=== PATIENT | male | born 1970 | race Caucasian/White ===

== ENCOUNTER → 2021-01-20 14:07 | Outpatient (BNVA) | payer MEDICAID, SELFPAY | PROVIDERS: PCP Internal Medicine; Referring Provider Emergency Medicine; Visit Provider Surgery | DX: L73.2 Hidradenitis suppurativa (principal) | CPT/HCPCS: 99202 ==

== ENCOUNTER 2021-01-28 16:40 | Emergency (ER) | payer OTHER, MEDICAID, SELFPAY ==
[2021-01-28 16:45] VITALS: BP 131/87; PULSE 97; O2SAT 97
[2021-01-28 16:46] VITALS: BP 114/69; PULSE 99; RESP 19; TEMP 36.6; O2SAT 98; BMI 51.4
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
[2021-01-28] MEDS: Acetaminophen 325 MG TABLET 975 MG PO (18:03)
[2021-01-28] MEDS: Naloxone HCl Nasal TAKE HOME 4 MG SPRAY NOSTRILALT (18:04)
[2021-01-28] MEDS: Ibuprofen 600 MG TABLET PO (18:04)
--- NOTE | 2021-01-28 18:06 | PC.NURSE ---
NARCAN FOR TAKE HOME USE NOT GIVEN.
== END 2021-01-28 18:12 | disposition home or self-care (01) ==
PROVIDERS: Emergency Provider Emergency Medicine Emergency Medical Services
DX: S09.90XA Unspecified injury of head, initial encounter (principal); S00.83XA Contusion of other part of head, initial encounter; S39.012A Strain of muscle, fascia and tendon of lower back, initial encounter; G44.309 Post-traumatic headache, unspecified, not intractable; F14.90 Cocaine use, unspecified, uncomplicated; V43.52XA Car driver injured in collision with other type car in traffic accident, initial encounter; Y93.9 Activity, unspecified; Y92.410 Unspecified street and highway as the place of occurrence of the external cause; Y99.9 Unspecified external cause status; Z79.899 Other long term (current) drug therapy; Z71.51 Drug abuse counseling and surveillance of drug abuser
CPT/HCPCS: 99283; 99284

== ENCOUNTER → 2022-01-03 11:01 | Outpatient (BNVA) | payer MEDICAID, SELFPAY | PROVIDERS: PCP Internal Medicine; Visit Provider Anesthesiology | DX: M46.1 Sacroiliitis, not elsewhere classified (principal); E66.01 Morbid (severe) obesity due to excess calories; M72.2 Plantar fascial fibromatosis; M51.36 Other intervertebral disc degeneration, lumbar region; M54.16 Radiculopathy, lumbar region; M47.816 Spondylosis without myelopathy or radiculopathy, lumbar region; G89.4 Chronic pain syndrome; Z68.41 Body mass index [BMI] 40.0-44.9, adult | CPT/HCPCS: 99202 ==

== ENCOUNTER 2022-01-11 06:08 | Outpatient (REF) | payer MEDICAID, SELFPAY ==
--- NOTE | ~2022-01-11 | FL_ITS ---
EXAMINATION: XR FLUOROSCOPY WITH IMAGES CLINICAL INFORMATION: SI joint injection. COMPARISON: None. TECHNIQUE: Fluoroscopy performed by Dr. Kem Deleon. Fluoroscopy time: 0.1 minute. Cumulative Dose: 8.66 mGy. DAP: 2.41 Gy-cm2. Images: 1. FINDINGS: There is a single image revealing a needle positioned along the right SI joint and contrast opacifying the adjacent soft tissues. FL/FL guidance in treatment room IMPRESSION: Fluoroscopy guidance was provided to referrer for SI joint injection.
== END 2022-01-11 06:09 | disposition home or self-care (01) ==
LOC: HO.RADIR 06:08
PROVIDERS: Visit Provider Anesthesiology
DX: M46.1 Sacroiliitis, not elsewhere classified (principal); M54.16 Radiculopathy, lumbar region; M51.36 Other intervertebral disc degeneration, lumbar region; M47.816 Spondylosis without myelopathy or radiculopathy, lumbar region; M72.2 Plantar fascial fibromatosis; E66.01 Morbid (severe) obesity due to excess calories; G89.4 Chronic pain syndrome
CPT/HCPCS: 27096

== ENCOUNTER 2022-02-08 06:18 | Outpatient (REF) | payer MEDICAID, SELFPAY ==
--- NOTE | ~2022-02-08 | FL_ITS ---
EXAMINATION: XR FLUOROSCOPY WITH IMAGES CLINICAL INFORMATION: Radiculopathy lumbar region. COMPARISON: None. TECHNIQUE: Fluoroscopy performed by POLLY Nguyen. Fluoroscopy time: 0.6 minutes. Cumulative Dose: 129 mGy. DAP: 30 Gy-cm2. Images: 2. FINDINGS: There are 2 digital images obtained revealing needle positioned inferior to right L4 and L5 pedicles with contrast opacifying the intra- and extraspinal epidural space. The visualized bones and the disc heights are preserved normal. FL/FL guidance in treatment room IMPRESSION: Fluoroscopy guidance provided to referrer for pain management.
== END 2022-02-08 06:19 | disposition home or self-care (01) ==
LOC: CF 06:18
PROVIDERS: Visit Provider Anesthesiology
DX: M54.16 Radiculopathy, lumbar region (principal); M46.1 Sacroiliitis, not elsewhere classified; M72.2 Plantar fascial fibromatosis; M51.36 Other intervertebral disc degeneration, lumbar region; M47.816 Spondylosis without myelopathy or radiculopathy, lumbar region; G89.4 Chronic pain syndrome
CPT/HCPCS: 64483; 64484; J3300

== ENCOUNTER → 2022-03-14 15:17 | Outpatient (BNVA) | payer MEDICAID, SELFPAY | PROVIDERS: PCP Internal Medicine; Visit Provider Anesthesiology | DX: M46.1 Sacroiliitis, not elsewhere classified (principal); E66.01 Morbid (severe) obesity due to excess calories; M72.2 Plantar fascial fibromatosis; M51.36 Other intervertebral disc degeneration, lumbar region; M54.16 Radiculopathy, lumbar region; M47.816 Spondylosis without myelopathy or radiculopathy, lumbar region; G89.4 Chronic pain syndrome | CPT/HCPCS: 99212 ==

== ENCOUNTER 2022-04-12 06:12 | Outpatient (REF) | payer MEDICAID, SELFPAY ==
--- NOTE | ~2022-04-12 | FL_ITS ---
EXAMINATION: XR FLUOROSCOPY WITH IMAGES CLINICAL INFORMATION: M47.816 - Spondylosis without myelopathy or radiculopathy, lumbar region COMPARISON: Lumbar spine radiographs 10/15/2019 TECHNIQUE: Fluoroscopy Supervised By: Dr. Kem Deleon. Fluoroscopy Time: 0.3 minutes. Cumulative Dose: 24.7 mGy. DAP: 6.75 Gycm2. Images: 3. FINDINGS: There are spinal needles overlying the outer right L3, L4, and L5 neural foramen. There is contrast seen in the respective nerve sheaths. Some early transforaminal epidural extension is suggested. No visible vascular communication. There are degenerative changes again seen with multilevel vertebral spurring. FL/FL guidance in treatment room IMPRESSION: Fluoroscopy for pain management procedures.
== END 2022-04-12 06:13 | disposition home or self-care (01) ==
LOC: CF 06:12
PROVIDERS: Visit Provider Anesthesiology
DX: Z13.89 Encounter for screening for other disorder (principal)

== ENCOUNTER 2022-05-23 12:17 | Emergency (ER) | payer MEDICAID, SELFPAY ==
[2022-05-23 12:29] VITALS: BP 117/64; PULSE 89; RESP 18; TEMP 36.4; O2SAT 95; BMI 47.5
--- NOTE | 2022-05-23 12:30 | ED_ITS ---
HPI - Extremity Injury (Lower) General Chief Complaint: General Medical <CAROLANN Gonzalez Last Filed: 05/23/22 12:34> Stated Complaint: Back pain/Knee pain <CAROLANN Gonzalez Last Filed: 05/23/22 12:34> Time Seen by Provider: 05/23/22 13:26 <CAROLANN Gonzalez Last Filed: 05/23/22 12:34> Source: patient <CAROLANN Sharpe Last Filed: 05/23/22 15:16> Mode of arrival: ambulatory <CAROLANN Sharpe Last Filed: 05/23/22 15:16> Limitations: no limitations <CAROLANN Sharpe Last Filed: 05/23/22 15:16> History of Present Illness HPI Narrative: Patient is a 51 year old assigned male at with a history of chronic back pain presenting to the emergency department today with low back pain, bilateral knee pain, and left shoulder pain. Patient states that last week he started at [facility] and he has been having this pain since starting. Patient denies any dizziness, lightheadedness, abdominal pain, nausea, vomiting, fever, chills, blurry vision, double vision, loss of vision, chest pain, difficulty breathing, shortness of breath, night sweats, pain with urination, increased urinary frequency, increased urinary urgency, blood in his urine or stool, syncope or a near syncopal episode, recent trauma or falls, bowel incontinence, bladder incontinence, bowel retention, bladder retention, or any other complaints at this time. <CAROLANN Sharpe - Last Filed: 05/23/22 15:16> Onset (ago): day(s) <CAROLANN Sharpe - Last Filed: 05/23/22 15:16> Severity: mild <CAROLANN Sharpe Last Filed: 05/23/22 15:16> Severity scale (1-10): 2 <CAROLANN Sharpe Last Filed: 05/23/22 15:16> Other symptoms: none <CAROLANN Sharpe Last Filed: 05/23/22 15:16> Related Data Home Medications: Home Medications Medication Instructions Recorded Confirmed diclofenac potassium 25 mg capsule 25 mg PO BID 01/20/21 01/20/21 Previous Rx's Medication Instructions Recorded chlorhexidine gluconate 4 % 1 appl topical .COMPLEX 2 doses 01/20/21 topical liquid (Hibiclens) #473 mL methocarbamol 500 mg tablet 1,000 mg PO Q8H PRN Back pain, 01/28/21 muscle spasm #30 tabs cyclobenzaprine 5 mg tablet 5 mg PO TID PRN muscle spasm 7 05/23/22 days #21 tabs <CAROLANN Gonzalez - Last Filed: 05/23/22 12:34> Allergies/Adverse Reactions: Allergies Allergy/AdvReac Type Severity Reaction Status Date / Time No Known Allergies Allergy Verified 04/14/22 08:24 [No Known Allergies*] <CAROLANN Gonzalez Last Filed: 05/23/22 12:34> Review of Systems Constitutional: Constitutional: Reports no additional constitutional complaints, Denies chills, Denies fever(s) and Denies night sweats <CAROLANN Sharpe Last Filed: 05/23/22 15:16> Eyes: Eyes: Reports no additional eye complaints, Denies blurry vision, Denies change in vision, Denies diplopia, Denies eye discharge, Denies loss of vision and Denies eye pain <CAROLANN Sharpe Last Filed: 05/23/22 15:16> ENT: Denies dizziness <CAROLANN Sharpe Last Filed: 05/23/22 15:16> Cardiovascular: Cardiovascular: Reports no additional cardiovascular complaints, Denies chest pain, Denies lightheadedness, Denies Loss of Consciousness and Denies dyspnea <CAROLANN Sharpe Last Filed: 05/23/22 15:16> Respiratory: Respiratory: Reports no additional respiratory complaints and Denies dyspnea <CAROLANN Sharpe Last Filed: 05/23/22 15:16> Gastrointestinal: Gastrointestinal: Reports no additional gastrointestinal complaints, Denies abdominal pain, Denies melena, Denies hematochezia, Denies change in bowel habits and Denies change in stool character <CAROLANN Sharpe Last Filed: 05/23/22 15:16> Genitourinary: Genitourinary: Reports no additional male genitourinary complaints, Denies hematuria, Denies oliguria, Denies difficulty urinating, Denies dysuria, Denies urinary frequency, Denies urinary hesitancy, Denies urinary incontinence and Denies urinary urgency <CAROLANN Sharpe - Last Filed: 05/23/22 15:16> Musculoskeletal: Musculoskeletal: Reports no additional musculoskeletal complaints, Denies numbness and Denies tingling <CAROLANN Sharpe - Last Filed: 05/23/22 15:16> Comments: back pain, bilateral knee pain, left shoulder pain <CAROLANN Sharpe - Last Filed: 05/23/22 15:16> Neurologic: Denies dizziness, Denies loss of vision, Denies numbness and Denies tingling <CAROLANN Sharpe - Last Filed: 05/23/22 15:16> Psychiatric: Psychiatric: Reports no additional psychiatric complaints <CAROLANN Sharpe - Last Filed: 05/23/22 15:16> Endocrine: Endocrine: Reports no additional endocrine complaints <CAROLANN Sharpe - Last Filed: 05/23/22 15:16> Hematologic/Lymphatic: Hematologic/Lymphatic: Reports no additional hematologic/lymphatic complaints <CAROLANN Sharpe - Last Filed: 05/23/22 15:16> Allergic/Immunologic: Allergic/Immunologic: Reports no additional allergic/immunologic complaints <CAROLANN Sharpe - Last Filed: 05/23/22 15:16> [facility] Past Medical History Attestation statement: The following information was validated with the patient. <CAROLANN Sharpe - Last Filed: 05/23/22 15:16> Source: old records reviewed and nursing notes reviewed <CAROLANN Sharpe - Last Filed: 05/23/22 15:16> Medical History: Medical History Anxiety Depression History of back pain Obesity <CAROLANN Gonzalez - Last Filed: 05/23/22 12:34> Social History Social History: Social History Advance Directives: No Advance Directives Information Provided: No <CAROLANN Gonzalez - Last Filed: 05/23/22 12:34> Physical Exam Vital Signs: Vital Signs: Last Vital Signs Temp 97.5 F 05/23/22 12:29 Pulse 89 05/23/22 12:29 Resp 18 05/23/22 12:29 BP 117/64 05/23/22 12:29 Pulse Ox 95 05/23/22 12:29 O2 Del Method 05/23/22 12:29 BMI result Body Mass Index 47.5 <Krysta Wan SD - Last Filed: 05/23/22 12:34> Vital Signs: Last Vital Signs Temp 97.5 F 05/23/22 12:29 Pulse 89 05/23/22 12:29 Resp 18 05/23/22 12:29 BP 117/64 05/23/22 12:29 Pulse Ox 95 05/23/22 12:29 O2 Del Method 05/23/22 12:29 BMI result Body Mass Index 47.5 <CAROLANN Sharpe - Last Filed: 05/23/22 15:16> Const: General: cooperative, no acute distress, alert and awake <CAROLANN Sharpe - Last Filed: 05/23/22 15:16> Nutritional Appearance: well nourished <CAROLANN Sharpe - Last Filed: 05/23/22 15:16> Orientation/consciousness: patient oriented x3 <CAROLANN Sharpe - Last Filed: 05/23/22 15:16> Limitations: no limitations <CAROLANN Sharpe - Last Filed: 05/23/22 15:16> HEENT: Head: Yes normal to inspection and Yes atraumatic <CAROLANN Sharpe - Last Filed: 05/23/22 15:16> Ears: hearing grossly normal bilaterally and external ears normal <CAROLANN Sharpe - Last Filed: 05/23/22 15:16> General nose exam: Normal external nose present, no nasal discharge noted and no epistaxis <CAROLANN Sharpe - Last Filed: 05/23/22 15:16> Face and sinus: Yes normal facial exam, No abrasion and No laceration <CAROLANN Sharpe - Last Filed: 05/23/22 15:16> Mouth: Normal oral and palatal mucosa present, no drooling and no muffled voice <CAROLANN Sharpe - Last Filed: 05/23/22 15:16> Eyes: General: appearance normal, both eyes and all related structures <Tiffani Parr [facility] Last Filed: 05/23/22 15:16> Periorbital: periorbital findings normal <Tiffani Parr [facility] Last Filed: 05/23/22 15:16> Eyelids: Yes eyelids normal <Tiffani Parr [facility] Last Filed: 05/23/22 15:16> Conjunctivae: conjunctivae normal <Tiffani Parr [place] - Last Filed: 05/23/22 15:16> Pupils: Equal, round and reactive pupils present <Tiffani Parr [facility] Last Filed: 05/23/22 15:16> EOM: EOMs intact bilaterally <Tiffani Parr [facility] Last Filed: 05/23/22 15:16> Neck: Neck: Yes normal visual inspection, Yes full ROM and Yes no lymphadenopathy <Tiffani Parr [facility] Last Filed: 05/23/22 15:16> Chest: Chest palpation & inspection: normal inspection of the chest <Tiffani Parr [facility] Last Filed: 05/23/22 15:16> Resp: Effort & Inspection: normal respiratory effort and able to speak in complete sentences <Tiffani Parr [facility] Last Filed: 05/23/22 15:16> Auscultation: clear to auscultation bilaterally <Tiffani Parr [facility] Last Filed: 05/23/22 15:16> Cardio: Rate: regular rate <Tiffani Parr [facility] Last Filed: 05/23/22 15:16> Rhythm: regular rhythm <Tiffani Parr [facility] Last Filed: 05/23/22 15:16> GI: Inspection: Yes normal to inspection <Tiffani Parr [facility] Last Filed: 05/23/22 15:16> Palpation (GI): Soft to palpation, not firm, nontender, no guarding and not rigid <Tiffani Parr [facility] Last Filed: 05/23/22 15:16> : General: Yes no CVA tenderness <Tiffani Parr SD - Last Filed: 05/23/22 15:16> Back/Spine/Pelvis: Back: no CVA tenderness <Tiffani Parr SD - Last Filed: 05/23/22 15:16> Cervical Spine: normal cervical lordosis and cervical ROM normal <Tiffani Parr PA - Last Filed: 05/23/22 15:16> Thoracic/Lumbar Spine: thoracic and lumbar spine normal to inspection and thoraco-lumbar ROM normal <Tiffani Parr PA - Last Filed: 05/23/22 15:16> Pelvis: no pain with anterior-posterior compression <Tiffani Parr PA - Last Filed: 05/23/22 15:16> Neuro: General: patient oriented x3 and moves all extremities <Tiffani Ledezmarobi SD - Last Filed: 05/23/22 15:16> Cranial nerves: Yes Equal, round and reactive pupils present <Tiffani Parr SD - Last Filed: 05/23/22 15:16> Cognition (Neuro): normal cognition <Tiffani Ledezmarobi SD - Last Filed: 05/23/22 15:16> Motor exam (neuro): 5/5 motor strength present throughout <Tiffani Parr SD - Last Filed: 05/23/22 15:16> Sensory Exam: Normal double simultaneous stimulation for sensation <Tiffani Ledezmarobi SD - Last Filed: 05/23/22 15:16> Coordination: [id number] test normal <Tiffani Parr SD - Last Filed: 05/23/22 15:16> Extrem: General: Yes normal to inspection, Yes full ROM and Yes capillary refill normal <Tiffani Ledezmarobi SD - Last Filed: 05/23/22 15:16> Psych: Appearance: grossly normal <Tiffani Ledezmarobi SD - Last Filed: 05/23/22 15:16> Mental Status: mental status grossly normal <Tiffani Ledezmarobi SD - Last Filed: 05/23/22 15:16> Affect: normal affect <Tiffani Ledezmarobi PA - Last Filed: 05/23/22 15:16> Attitude: cooperative <Tiffani Ledezmarobi SD - Last Filed: 05/23/22 15:16> Thought process: Normal thought process present <Tiffani Ledezmarobi PA - Last Filed: 05/23/22 15:16> Thought content: Normal thought content present <Tiffani Keshav PA - Last Filed: 05/23/22 15:16> Insight: Good insight present (Psych) <Tiffani Keshav SD - Last Filed: 05/23/22 15:16> Course Course Course Narrative: RME--51yo M with PMHx back pain followed by pain management, c/o acute low back, bilateral knee, and L shoulder pain s/p heavy lifting on Monday at work, works for [employer]. Denies known injury/trauma or fall, numbness/tingling, urinary incontinence/retention. Taking Baclofen currently w/o relief. Admits to recent back injections with pain management on 04/14 without relief. Patient ambulating with steady slow gait Will be sent back to waiting room for full eval by [facility] [place]/pain management <CAROLANN Gonzalez - Last Filed: 05/23/22 12:34> Medications Administered Discontinued Medications Generic Name Dose Route Start Last Admin Trade Name Freq PRN Reason Stop Dose Admin Cyclobenzaprine HCl 5 mg 05/23/22 13:50 05/23/22 13:59 Cyclobenzaprine Hcl 5 Mg Tablet PO 05/23/22 13:51 5 mg ONCE ONE Administration Ketorolac Tromethamine 15 mg 05/23/22 13:50 05/23/22 14:00 Ketorolac Tromethamine 15 Mg/Ml Vial IM 05/23/22 13:51 15 mg ONCE ONE Administration <CAROLANN Gonzalez - Last Filed: 05/23/22 12:34> Medications Administered Discontinued Medications Generic Name Dose Route Start Last Admin Trade Name Freq PRN Reason Stop Dose Admin Cyclobenzaprine HCl 5 mg 05/23/22 13:50 05/23/22 13:59 Cyclobenzaprine Hcl 5 Mg Tablet PO 05/23/22 13:51 5 mg ONCE ONE Administration Ketorolac Tromethamine 15 mg 05/23/22 13:50 05/23/22 14:00 Ketorolac Tromethamine 15 Mg/Ml Vial IM 05/23/22 13:51 15 mg ONCE ONE Administration <CAROLANN Sharpe - Last Filed: 05/23/22 15:16> Medical Decision Making Medical Decision Making MDM Narrative: Patient is a 51 year old assigned male at with a history of chronic back pain presenting to the emergency department today with back, bilateral knee, and left shoulder pain. Patient's physical exam was unremarkable. I explained my physical exam findings to the patient. I answered all questions asked by the patient. Patient received IM Toradol which he stated helped his symptoms significantly. I stressed the importance of the patient taking his med ication as prescribed. I stressed the importance of the patient following up with his primary care provider. I stressed the importance of the patient returning to the emergency department immediately if his symptoms were to worsen or if he were to develop any dizziness, shortness of breath, difficulty breathing, chest pain, blurry vision, loss of vision, nausea, vomiting, abdominal pain, fever, chills, back pain, or any other complaints. Patient verbalized agreement and understanding with this treatment plan and discharge. <CAROLANN Sharpe - Last Filed: 05/23/22 15:16> Differential Diagnosis Differential Diagnoses: The differential diagnosis associated with the presentation includes <CAROLANN Sharpe Last Filed: 05/23/22 15:16> low back pain, mechanical pain <CAROLANN Sharpe Last Filed: 05/23/22 15:16> Discharge Plan Discharge Clinical Impression: Back pain <CAROLANN Gonzalez Last Filed: 05/23/22 12:34> Patient Disposition: Home, Self-Care <CAROLANN Gonzalez Last Filed: 05/23/22 12:34> Instructions: Back Pain (ED) <CAROLANN Gonzalez - Last Filed: 05/23/22 12:34> Additional Instructions: Follow up with your primary care provider. Return to the emergency department immediately if your symptoms worsen or if you develop any dizziness, shortness of breath, difficulty breathing, chest pain, blurry vision, loss of vision, nausea, vomiting, abdominal pain, fever, chills, back pain, or any other complaints. <CAROLANN Gonzalez Last Filed: 05/23/22 12:34> Prescriptions: New cyclobenzaprine 5 mg tablet 5 mg PO TID PRN (Reason: muscle spasm) 7 Days Qty: 21 0RF No Action methocarbamol 500 mg tablet 1,000 mg PO Q8H PRN (Reason: Back pain, muscle spasm) Qty: 30 0RF diclofenac potassium 25 mg capsule 25 mg PO BID chlorhexidine gluconate [Hibiclens] 4 % liquid 1 appl topical .COMPLEX Qty: 473 0RF Rx Instructions: 1 appl topical three times weekly in shower; lather on skin and wait 1 minute before rinsing off <CAROLANN Gonzalez - Last Filed: 05/23/22 12:34> Referrals: Frankie Harrison MD [Primary Care Provider] - <CAROLANN Gonzalez - Last Filed: 05/23/22 12:34> Interventions: ED Discharge Assessment Last Done: 05/23/22 14:06 <CAROLANN Gonzalez - Last Filed: 05/23/22 12:34> Discharge Date/Time: 05/23/22 14:19 <CAROLANN Gonzalez - Last Filed: 05/23/22 12:34> Print Language: Japanese <CAROLANN Gonzalez - Last Filed: 05/23/22 12:34>
[2022-05-23] MEDS: Cyclobenzaprine HCl 5 MG TABLET PO (13:59)
[2022-05-23] MEDS: Ketorolac Tromethamine 15 MG/ML VIAL IM (14:00)
--- NOTE | 2022-05-23 14:05 | PC.NURSE ---
medicated per provider order, toradol inj given IM left deltoid, pt tolerated well.
== END 2022-05-23 14:19 | disposition home or self-care (01) ==
LOC: HO.ED 14:06
PROVIDERS: Emergency Provider Student in an Organized Health Care Education/Training Program; PCP Internal Medicine
DX: M54.50 Low back pain, unspecified (principal); E66.01 Morbid (severe) obesity due to excess calories; Z68.42 Body mass index [BMI] 45.0-49.9, adult
CPT/HCPCS: 96372; 99283; 99284; J1885

== ENCOUNTER 2022-11-07 10:53 | Emergency (ER) | payer MEDICAID, SELFPAY ==
[2022-11-07 11:21] VITALS: BP 113/72; PULSE 100; RESP 18; TEMP 36.7; O2SAT 96; BMI 39.3
--- NOTE | 2022-11-07 11:22 | ED_ITS ---
HPI - General Adult General Chief complaint: Dizziness Stated complaint: Cyst/Dizziness Time Seen by Provider: 11/07/22 13:09 Source: patient Mode of arrival: ambulatory Limitations: no limitations History of Present Illness HPI narrative: 52 year old with past medical history of arthritis and obesity presents today with a cyst under his left axilla. Reports this has been there for months and admits to lancing it himself at home however it hasn't healed. He notes it's painful. Additionally reports feeling overly fatigued with decreased energy x3 days. Denies fever, chills. Reports familial history of diabetes, no known personal history of DM. Admits to ongoing stressors at home with family passing and facing homelessness. Related Data Home Medications Medication Instructions Recorded Confirmed diclofenac potassium 25 mg capsule 25 mg PO BID 01/20/21 01/20/21 Previous Rx's Medication Instructions Recorded chlorhexidine gluconate 4 % 1 appl topical .COMPLEX 2 doses 01/20/21 topical liquid (Hibiclens) #473 mL methocarbamol 500 mg tablet 1,000 mg PO Q8H PRN Back pain, 01/28/21 muscle spasm #30 tabs cyclobenzaprine 5 mg tablet 5 mg PO TID PRN muscle spasm 7 05/23/22 days #21 tabs Allergies Allergy/AdvReac Type Severity Reaction Status Date / Time No Known Allergies Allergy Verified 04/14/22 08:24 [No Known Allergies*] Review of Systems Review of Systems: Yes all other systems are reviewed and are negative PMFSH Past Medical History Medical History Anxiety Depression History of back pain Obesity Social History Social History Alcohol intake: current Alcohol intake frequency: holidays/special occasions only Smoked in Last 30 Days: Yes Use of substances other than those prescribed or required for medical reasons: Yes Substance Use Type: Marijuana Substance Use Frequency: Chronic Longstanding Advance Directives: No Advance Directives Information Provided: No Physical Exam ED Vital Signs: Vital Signs - 24 hr 11/07/22 11:21 11/07/22 12:42 11/07/22 12:42 Temperature 98.0 F Pulse Rate 100 88 84 Respiratory Rate 18 14 Blood Pressure 113/72 124/75 Pulse Oximetry 96 97 Oxygen Delivery Method Room Air Room Air 11/07/22 12:46 11/07/22 12:47 11/07/22 12:52 Temperature Pulse Rate 84 94 88 Respiratory Rate 18 Blood Pressure 113/72 112/77 112/77 Pulse Oximetry 98 Oxygen Delivery Method Room Air 11/07/22 14:15 Temperature Pulse Rate 72 Respiratory Rate 17 Blood Pressure 105/65 Pulse Oximetry 94 Oxygen Delivery Method Room Air BMI result Body Mass Index 39.3 Const Other: obese, anxious General: anxious Nutritional Appearance: obese Orientation/consciousness: oriented to person and patient oriented x3 Limitations: no limitations HENMT Head: Yes normal to inspection Ears: external ears normal General nose exam: Normal external nose present Mouth: Normal oral and palatal mucosa present and oropharynx normal Throat: Yes posterior oropharynx normal Eyes General: appearance normal, both eyes and all related structures Neck Neck: Yes normal visual inspection Chest Chest palpation & inspection: normal inspection of the chest Resp Auscultation: clear to auscultation bilaterally Cardio Jugular venous distension: no JVD Rate: regular rate Rhythm: regular rhythm Heart sounds: S1 normal heart sound present and S2 normal heart sound present GI Inspection: Yes normal to inspection Palpation (GI): Soft to palpation, nontender and No hepatosplenomegaly present Auscultation: normal bowel sounds General: Yes no CVA tenderness Back/Spine/Pelvis Back: no CVA tenderness Skin Other: old axillary wound, no erythema, no swelling Rashes: no rashes Neuro General: oriented to person and patient oriented x3 Cranial nerves: Yes CN's II-XII intact bilaterally Motor exam (neuro): 5/5 motor strength present throughout Extrem General: Yes normal to inspection Psych Appearance: grossly normal Course Course Course Narrative: RME - 52 yo male with history of RAMANA, obesity, chronic pain, hidradenitis who presents to the ER for evaluation of dizziness, weakness, fatigue for the last 3 days along with ongoing cyst in the left axillary area. He is concerned infection went into his blood stream. No fevers, chest pain, SOB. Plan: labs, I&D abscess if needed Reevaluation(s) Reevaluation #1: No evidence of infection, bedside US negative for fluid collection or abscess. Patient appears to be a prediabetic and labs indicate that he may have some dehydration. In addition, the patient is extremely anxious. Time: 14:37 Medical Decision Making Differential Diagnosis Differential Diagnoses: The differential diagnosis associated with the presentation includes (diabetes, anxiety, axillary abscess, COVID were all cons idered. ) Lab Data MDM Lab Attestation statement: I reviewed the patient's lab results. Labs significant for negative COVID, negative WBC count, and hyperglycemia. 11/07/22 11:40 11/07/22 11:40 Labs: Lab Results 11/07/22 11/07/22 11/07/22 Range/Units 11:40 11:40 11:40 WBC 8.6 (4.8-10.8) X10*3/uL RBC 5.55 (4.60-5.80) X10*6/uL Hgb 14.4 (14.0-18.0) g/dl Hct 46.7 (42.0-52.0) % MCV 84.1 (80.0-98.0) fL MCH 25.9 L (27.0-33.0) pg MCHC 30.8 L (31.0-36.0) g/dl RDW 15.5 (11.0-16.0) % Plt Count 359 (160-400) X10*3/uL MPV 10.9 (9.4-12.4) fL Immature Gran % (Auto) 0.5 H (0.0-0.4) % Neut % (Auto) 66.0 (45-73) % Lymph % (Auto) 21.0 (20-40) % [place] % (Auto) 9.5 (2-11) % Eos % (Auto) 2.2 (0-4) % Baso % (Auto) 0.8 (0-2) % Lymph # (Auto) 1.8 (1.2-4.9) X10*3/uL [place] # (Auto) 0.8 (0.1-1.2) X10*3/uL Eos # (Auto) 0.2 (0.0-0.4) X10*3/uL Baso # (Auto) 0.1 (0.0-0.2) X10*3/uL Abs Immat Gran (auto) 0.04 H (0.00-0.03) X10*3/uL Absolute Neuts (auto) 5.7 (2.0-8.3) x10*3/uL Absolute Nucleated RBC 0.000 (0.0-0.012) X10*3/uL Nucleated RBC % (auto) 0.0 (0.0-0.2) /100WBC Sodium 141 (135-145) mmol/L Potassium 4.1 (3.3-5.1) mmol/L Chloride 107 (96-108) mmol/L Carbon Dioxide 25 (22-29) mmol/L Anion Gap 13 (12-20) BUN 16 (9-16) mg/dL Creatinine 1.15 (0.5-1.4) mg/dL Estim Creat Clear Calc 109.7 Estimated GFR > 60 Random Glucose 134 H (60-115) mg/dL Calcium 8.8 (8.4-10.2) mg/dL Magnesium 2.2 (1.6-2.6) mg/dL Total Bilirubin 0.3 (0.0-1.0) mg/dL Direct Bilirubin 0.1 (0.0-0.5) mg/dL AST 28 (5-37) U/L ALT 25 (0-40) U/L Alkaline Phosphatase 88 (39-117) U/L Total Protein 7.8 (6.5-8.0) g/dL Albumin 3.1 L (3.5-5.0) g/dL Urine Color Urine Appearance Urine pH (5.0-9.0) Ur Specific Joice (1.005-1.025) Urine Protein (Neg-Trace) mg/dL Urine Glucose (UA) (Negative) mg/dL Urine Ketones (Negative) mg/dL Urine Blood (Negative) Urine Nitrite (Negative) Ur Leukocyte Esterase (Negative) COVID-19 ([facility]) Negative (Negative) COVID-19 Clin Com See Note 11/07/22 Range/Units 12:44 WBC (4.8-10.8) X10*3/uL RBC (4.60-5.80) X10*6/uL Hgb (14.0-18.0) g/dl Hct (42.0-52.0) % MCV (80.0-98.0) fL MCH (27.0-33.0) pg MCHC (31.0-36.0) g/dl RDW (11.0-16.0) % Plt Count (160-400) X10*3/uL MPV (9.4-12.4) fL Immature Gran % (Auto) (0.0-0.4) % Neut % (Auto) (45-73) % Lymph % (Auto) (20-40) % [place] % (Auto) (2-11) % Eos % (Auto) (0-4) % Baso % (Auto) (0-2) % Lymph # (Auto) (1.2-4.9) X10*3/uL [place] # (Auto) (0.1-1.2) X10*3/uL Eos # (Auto) (0.0-0.4) X10*3/uL Baso # (Auto) (0.0-0.2) X10*3/uL Abs Immat Gran (auto) (0.00-0.03) X10*3/uL Absolute Neuts (auto) (2.0-8.3) x10*3/uL Absolute Nucleated RBC (0.0-0.012) X10*3/uL Nucleated RBC % (auto) (0.0-0.2) /100WBC Sodium (135-145) mmol/L Potassium (3.3-5.1) mmol/L Chloride (96-108) mmol/L Carbon Dioxide (22-29) mmol/L Anion Gap (12-20) BUN (9-16) mg/dL Creatinine (0.5-1.4) mg/dL Estim Creat Clear Calc Estimated GFR Random Glucose (60-115) mg/dL Calcium (8.4-10.2) mg/dL Magnesium (1.6-2.6) mg/dL Total Bilirubin (0.0-1.0) mg/dL Direct Bilirubin (0.0-0.5) mg/dL AST (5-37) U/L ALT (0-40) U/L Alkaline Phosphatase (39-117) U/L Total Protein (6.5-8.0) g/dL Albumin (3.5-5.0) g/dL Urine Color Yellow Urine Appearance Clear Urine pH 5.0 (5.0-9.0) Ur Specific Joice >= 1.030 H (1.005-1.025) Urine Protein Trace (Neg-Trace) mg/dL Urine Glucose (UA) Negative (Negative) mg/dL Urine Ketones Trace (Negative) mg/dL Urine Blood Negative (Negative) Urine Nitrite Negative (Negative) Ur Leukocyte Esterase Negative (Negative) COVID-19 ([facility]) (Negative) COVID-19 Clin Com Independent Interpretation I performed an independent interpretation of an: Ultrasound (Bedside: negative for fluid collection) Tests considered The following testing was considered but not selected: Considered ordering an official US but axilla with no erythema or swelling. My bedside US was negative for fluid collection. Chronic Conditions Patient?s care impacted by: Other (obesity, anxiety) Social Determinants Patient?s care significantly limited by Social Determinants of Health including: Inadequate housing Discharge Plan Discharge Clinical Impression: History of back pain, Hyperglycemia, Obesity, Anxiety Patient Disposition: Home, Self-Care Instructions: Anxiety (ED), Nondiabetic Hyperglycemia (ED), Low Fat Diet (ED) Additional Instructions: Increase fluid intake. Prescriptions: No Action methocarbamol 500 mg tablet 1,000 mg PO Q8H PRN (Reason: Back pain, muscle spasm) Qty: 30 0RF cyclobenzaprine 5 mg tablet 5 mg PO TID PRN (Reason: muscle spasm) 7 Days Qty: 21 0RF diclofenac potassium 25 mg capsule 25 mg PO BID chlorhexidine gluconate [Hibiclens] 4 % liquid 1 appl topical .COMPLEX Qty: 473 0RF Rx Instructions: 1 appl topical three times weekly in shower; lather on skin and wait 1 minute before rinsing off Referrals: Frankie Harrison MD [Primary Care Provider] - 5 days Discharge Date/Time: 11/07/22 14:41
[2022-11-07 11:45] LABS: MANUAL DIFF FLAG NO
[2022-11-07 11:57] LABS: Basophils Absolute Auto 0.1 X10*3/uL (0.0-0.2); Basophils Percent Auto 0.8 % (0-2); Eosinophils Absolute Auto 0.2 X10*3/uL (0.0-0.4); Eosinophils Percent Auto 2.2 % (0-4); Hematocrit 46.7 % (42.0-52.0); Hemoglobin 14.4 g/dl (14.0-18.0); Imm Gran Abs Auto 0.04 X10*3/uL (0.00-0.03); Imm Gran Pct Auto 0.5 % (0.0-0.4); Lymphocytes Absolute Auto 1.8 X10*3/uL (1.2-4.9); Mean Corpuscular HGB Conc 30.8 g/dl (31.0-36.0); Mean Corpuscular Hemoglobin 25.9 pg (27.0-33.0); Mean Corpuscular Volume 84.1 fL (80.0-98.0); Mean Platelet Volume 10.9 fL (9.4-12.4); Monocytes Absolute Auto 0.8 X10*3/uL (0.1-1.2); Monocytes Percent Auto 9.5 % (2-11); Neutrophils Absolute Auto 5.7 x10*3/uL (2.0-8.3); Platelet Count 359 X10*3/uL (160-400); Red Blood Count 5.55 X10*6/uL (4.60-5.80); Red Cell Distribution Width 15.5 % (11.0-16.0); White Blood Count 8.6 X10*3/uL (4.8-10.8)
[2022-11-07 12:08] LABS: Chloride 107 mmol/L (96-108)
[2022-11-07 12:09] LABS: Alanine Aminotransferase 25 U/L (0-40); Albumin Level 3.1 g/dL (3.5-5.0); Alkaline Phosphatase 88 U/L (39-117); Anion Gap 13 (12-20); Aspartate Amino Transferase 28 U/L (5-37); Bilirubin Direct 0.1 mg/dL (0.0-0.5); Bilirubin Total 0.3 mg/dL (0.0-1.0); Blood Urea Nitrogen 16 mg/dL (9-16); Calcium 8.8 mg/dL (8.4-10.2); Carbon Dioxide 25 mmol/L (22-29); Creatinine Clr Calc Pharmacy 109.7; Estimated Glomerular Filt Rate > 60; Glucose Random 134 mg/dL (60-115); Magnesium 2.2 mg/dL (1.6-2.6); Potassium 4.1 mmol/L (3.3-5.1); Sodium 141 mmol/L (135-145); Total Protein 7.8 g/dL (6.5-8.0)
[2022-11-07 12:22] LABS: COVID-19 Test Negative (Negative); IDNOW Serial# BCCEAD1C
[2022-11-07 12:42] VITALS: BP 124/75; PULSE 84; PULSE 88; RESP 14; O2SAT 97
[2022-11-07 12:46] VITALS: BP 113/72; PULSE 84
[2022-11-07 12:47] VITALS: BP 112/77; PULSE 94
[2022-11-07 12:52] VITALS: BP 112/77; PULSE 88; RESP 18; O2SAT 98
--- NOTE | 2022-11-07 12:56 | PC.NURSE ---
Alert and oriented. States not feeling well since monday. 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 Denies constipation or diarrhea, states dizzy and lightheaded when walking. No vomiting but states he is nauseous. VSS. Denies chest pain or sob, states that he has 8/10 chronic back pain but no new pain since onset of not feeling well.
[2022-11-07 13:01] LABS: Appearance Urine Clear; Color Urine Yellow; Glucose Urine UA Negative (Negative); Leukocyte Esterase Urine Negative (Negative); Nitrite Urine Negative (Negative); Specific Gravity - Urine >= 1.030 (1.005-1.025); Urine Blood Negative (Negative); Urine Ketones Trace mg/dL (Negative); Urine Protein Trace mg/dL (Neg-Trace)
[2022-11-07 14:15] VITALS: BP 105/65; PULSE 72; RESP 17; O2SAT 94
--- NOTE | 2022-11-07 14:34 | PC.NURSE ---
Patient stating he wants to leave, provider notified who stated he would be putting in an order for patients discharge. Patient aware.
--- NOTE | 2022-11-07 14:38 | PC.NURSE ---
Did not want to wait for provider to put in discharge paperwork and left.
== END 2022-11-07 14:41 | disposition home or self-care (01) ==
LOC: HO.ED 13:10
PROVIDERS: Physician Assistant; Emergency Provider Emergency Medicine; PCP Internal Medicine
DX: M54.9 Dorsalgia, unspecified (principal); R73.9 Hyperglycemia, unspecified; E66.9 Obesity, unspecified; Z68.39 Body mass index [BMI] 39.0-39.9, adult; F41.9 Anxiety disorder, unspecified; Z20.822 Contact with and (suspected) exposure to COVID-19; G89.4 Chronic pain syndrome; F12.90 Cannabis use, unspecified, uncomplicated
CPT/HCPCS: 80048; 80076; 81003; 83735; 85025; 87635; 99283; 99284

== ENCOUNTER 2023-05-17 10:18 | Emergency (ER) | payer SELFPAY ==
[2023-05-17 10:44] VITALS: BP 146/72; PULSE 77; RESP 20; TEMP 36.1; O2SAT 96; BMI 42.7
--- NOTE | 2023-05-17 12:55 | ED.GENADULT ---
HPI - General Adult General Chief complaint: Upper Respiratory Symptoms Stated complaint: Flu Like Symptoms Time Seen by Provider: 05/17/23 11:25 Source: patient and family Mode of arrival: ambulatory Limitations: no limitations History of Present Illness HPI narrative: ?This is a 53-year-old male history of obesity presenting to the emergency department with complaints of fatigue, malaise, sore throat, myalgias, diffuse headache without visual disturbances, trauma, dizziness, dry cough x4 days progressively worsening.? Significant other sick with similar symptoms.? Denies chest pain, shortness of breath, vomiting, diarrhea, abdominal pain, weakness, dizziness at this time. Related Data Home Medications Medication Instructions Recorded Confirmed diclofenac potassium 25 mg capsule 25 mg PO BID 01/20/21 01/20/21 Previous Rx's Medication Instructions Recorded chlorhexidine gluconate 4 % 1 appl topical .COMPLEX 2 doses 01/20/21 topical liquid (Hibiclens) #473 mL methocarbamol 500 mg tablet 1,000 mg (2 x 500 mg) PO Q8H PRN 01/28/21 Back pain, muscle spasm #30 tabs cyclobenzaprine 5 mg tablet 5 mg PO TID PRN muscle spasm 7 05/23/22 days #21 tabs albuterol sulfate 90 mcg/actuation 2 inh inhalation Q4-6H PRN 05/17/23 breath activated powder inhaler shortness of breath or wheezing #1 ea prednisone 20 mg tablet 20 mg PO DAILY 5 days #5 tabs 05/17/23 Allergies Allergy/AdvReac Type Severity Reaction Status Date / Time No Known Allergies Allergy Verified 05/17/23 10:45 [No Known Allergies*] Review of Systems Review of Systems: Yes all other systems are reviewed and are negative PMFSH Past Medical History Attestation statement: The following information was validated with the patient. Source: old records reviewed and nursing notes reviewed Onset Date is defined in the Problem List Problems that require an onset date and time if occurred within 24 hrs of arrival to the ED Aortic Dissection and Rupture; Neurologic impairment; Cardiopulmonary Arrest; Endotracheal Intubation; Insertion or Replacement of Mechanical Circulatory Assist Device Medical History Anxiety Depression History of back pain Obesity Social History Social History Alcohol intake: current Alcohol intake frequency: holidays/special occasions only Substance Use Type: Marijuana Advance Directives: No Advance Directives Information Provided: No Physical Exam ED Vital Signs: Vital Signs - 24 hr 05/17/23 10:44 Temperature 96.9 F Pulse Rate 77 Respiratory Rate 20 Blood Pressure 146/72 H Pulse Oximetry 96 Oxygen Delivery Method Room Air BMI result Body Mass Index 42.7 vss Appearance: Alert.? Oriented X3.? No acute distress.? Head: Normocephalic, atraumatic, no step-offs or deformities Eyes: Pupils equal, round and reactive to light.? ENT: Pharynx normal.? Neck: Normal inspection.? Neck supple.? CVS: Normal heart rate and rhythm.? Pulses normal.? Respiratory: No respiratory distress.? Breath sounds normal.? Abdomen: Soft and nontender.? Skin: Skin warm and dry.? Normal skin color.? Normal skin turgor.? Extremities: No lower extremity edema.? No calf ttp. 5/5 strength to bilateral upper and lower extremities Neuro: Oriented X 3.? No motor deficit.? No sensory deficit. CN 2-12 intact Course Reevaluation(s) Reevaluation #1: Patient negative for flu versus COVID versus RSV however his symptoms highly suggestive of viral illness.? Will discharge with supportive measures, prednisone and albuterol.? Educated patient on diagnosis and treatment plan, answered all question, patient verbalizes understanding.? At this time patient will be discharged home, advised to return with new or worsening symptoms.? Educated on worrisome signs and symptoms and when to return.? At this time I feel comfortable discharge home. Time: 12:55 Medical Decision Making Medical Decision Making MDM Narrative: 52-year-old male presents with viral symptoms for the past 4 days. ??Physical examination benign ?This is likely viral flu versus COVID versus RSV versus bronchitis.? Unlikely pulmonary embolism, pneumonia, ACS, retropharyngeal abscess, peritonsillar abscess, epiglottitis, intracranial hemorrhage, stroke, posterior stroke, meningitis or encephalitis.? No signs of acute respiratory distress ?Plan viral testing Differential Diagnosis Differential Diagnoses: The differential diagnosis associated with the presentation includes ?This is likely viral flu versus COVID versus RSV versus bronchitis.? Unlikely pulmonary embolism, pneumonia, ACS, retropharyngeal abscess, peritonsillar abscess, epiglottitis, intracranial hemorrhage, stroke, posterior stroke, meningitis or encephalitis.? No signs of acute respiratory distress Admission/Observation Consideration of admission/observation: Escalation of care including admission/observation considered Lab Data MDM Lab Attestation statement: I reviewed the patient's lab results. Labs: Lab Results 05/17/23 Range/Units 11:23 COVID-19 ([facility]) Negative (Negative) COVID-19 Clin Com See Note Influenza Type A ([facility]) Negative (Negative) Influenza Type B (SNEHA) Negative (Negative) Influenza A & B Note See Note Discharge Plan Discharge Clinical Impression: Viral illness Patient Disposition: Home, Self-Care Instructions: Viral Syndrome (ED) Additional Instructions: Take your medications as prescribed. If you were prescribed antibiotics today, it is important that you take your medication to their entirety, do not skip any doses, do not finish them early. Follow-up with your primary care provider this week. Return to the emergency department with new or worsening symptoms. Such as fevers, chills, chest pain, shortness of breath, nausea, vomiting, dizziness, headache, vision changes, lethargy In case of emergency call 911 Prescriptions: New prednisone 20 mg tablet 20 mg PO DAILY 5 Days Qty: 5 0RF albuterol sulfate 90 mcg/actuation aerosol powdr breath activated 2 inh inhalation Q4-6H PRN (Reason: shortness of breath or wheezing) Qty: 1 0RF No Action methocarbamol 500 mg tablet 1,000 mg PO Q8H PRN (Reason: Back pain, muscle spasm) Qty: 30 0RF cyclobenzaprine 5 mg tablet 5 mg PO TID PRN (Reason: muscle spasm) 7 Days Qty: 21 0RF diclofenac potassium 25 mg capsule 25 mg PO BID chlorhexidine gluconate [Hibiclens] 4 % liquid 1 appl topical .COMPLEX Qty: 473 0RF Rx Instructions: 1 appl topical three times weekly in shower; lather on skin and wait 1 minute before rinsing off Referrals: Physician,Unknown J [Primary Care Provider] - 2 days Stand Alone Forms: Work/School Release
[2023-05-17 12:56] VITALS: BP 141/86; PULSE 64; RESP 18; TEMP 36.9; O2SAT 98
== END 2023-05-17 13:09 | disposition home or self-care (01) ==
PROVIDERS: Emergency Provider Emergency Medicine
DX: J02.9 Acute pharyngitis, unspecified (principal); R05.9 Cough, unspecified; B34.9 Viral infection, unspecified; R53.83 Other fatigue; M79.10 Myalgia, unspecified site; Z11.52 Encounter for screening for COVID-19
CPT/HCPCS: 87502; 87635; 99283

== ENCOUNTER 2023-06-20 09:29 | Emergency (ER) | payer MEDICAID, SELFPAY ==
[2023-06-20 09:43] VITALS: BP 115/69; PULSE 61; RESP 20; TEMP 36.4; O2SAT 95; BMI 42.3
--- NOTE | 2023-06-20 12:39 | ED_ITS ---
HPI - Ear Problem General Chief complaint: Ear Problems Stated complaint: Both Ears Are Blocked Time Seen by Provider: 06/20/23 12:21 Source: patient Mode of arrival: ambulatory Limitations: no limitations History of Present Illness HPI Narrative: 52 year old male with pmhx significant for RAMANA, obesity, DDD, sacroilitis, plantar fasciits, spondylosis of lumbar spine presents to the ED today for evaluation of bilateral ear pain/ congestion x1 week. Admits to testing positive for covid 2 weeks ago. Woke up with bilateral ear pain 5 days later. Additionally endorses decreased hearing to right ear. Denies discharge from either ear. Has tried nasal decongestants without relief. Admits to sticking qtips into ears. Denies recent flights or scuba diving. Denies fever, chills, N/V, sore throat, cough, sinus pain. Related Data Home Medications Medication Instructions Recorded Confirmed diclofenac potassium 25 mg capsule 25 mg PO BID 01/20/21 01/20/21 Previous Rx's Medication Instructions Recorded chlorhexidine gluconate 4 % 1 appl topical .COMPLEX 2 doses 01/20/21 topical liquid (Hibiclens) #473 mL methocarbamol 500 mg tablet 1,000 mg (2 x 500 mg) PO Q8H PRN 01/28/21 Back pain, muscle spasm #30 tabs cyclobenzaprine 5 mg tablet 5 mg PO TID PRN muscle spasm 7 05/23/22 days #21 tabs albuterol sulfate 90 mcg/actuation 2 inh inhalation Q4-6H PRN 05/17/23 breath activated powder inhaler shortness of breath or wheezing #1 ea prednisone 20 mg tablet 20 mg PO DAILY 5 days #5 tabs 05/17/23 amoxicillin 875 mg-potassium 1 tab PO BID 10 days #20 tabs 06/20/23 clavulanate 125 mg tablet Allergies Allergy/AdvReac Type Severity Reaction Status Date / Time No Known Allergies Allergy Verified 06/20/23 09:45 [No Known Allergies*] Review of Systems Review of Systems: Constitutional: No fever, chills, fatigue, night sweats, weight changes ENT/Mouth: + b/l ear pain, +hearing loss, No nasal congestion, sinus pain, rhinorrhea, sore throat Eyes: No eye pain, swelling, redness, vision changes, discharge Cardio: No chest pain, palpitations, CH[place], orthopnea, peripheral edema Pulm: No SOB, cough, sputum, wheezing, dyspnea, hemoptysis GI: No nausea, vomiting, hematemesis, abdominal pain, diarrhea, constipation, hematochezia, melena : No irregular bleeding, dysuria, frequency, urgency, hesitancy, hematuria, flank pain, urinary flow changes, urinary incontinence or retention MSK: No back pain, neck pain, joint pain, myalgias Skin: No lesions, rashes Neuro: No weakness, numbness, paresthesias, LOC, dizziness, headache All other systems reviewed and are negative. [facility] Past Medical History Attestation statement: The following information was validated with the patient. Source: old records reviewed and nursing notes reviewed Medical History Depression Anxiety History of back pain Obesity Social History Social History Alcohol intake: current Alcohol intake frequency: holidays/special occasions only Substance Use Type: Marijuana Advance Directives: No Advance Directives Information Provided: No Physical Exam Vital Signs: Vital Signs: Last Vital Signs Temp 97.6 F 06/20/23 09:43 Pulse 61 06/20/23 09:43 Resp 20 06/20/23 09:43 BP 115/69 06/20/23 09:43 Pulse Ox 95 06/20/23 09:43 O2 Del Method Room Air 06/20/23 09:43 BMI result Body Mass Index 42.3 Vital signs stable, afebrile Const: General: cooperative, healthy appearing, comfortable, no acute distress, alert and awake Orientation/consciousness: patient oriented x3 Limitations: no limitations HEENT: Other: + Pain on manipulation of bilateral pinn as, R>L. No mastoid tenderness. Bilateral EACs without erythema or edema. No cerumen impaction or discharge. Bilateral TMs intact with effusion and erythema. No bulging. + hearing slightly decreased to right Head: Yes normal to inspection General nose exam: Normal external nose present and No nasal discharge present Face and sinus: Yes normal facial exam and Yes sinuses nontender Mouth: Normal oral and palatal mucosa present Eyes: General: appearance normal, both eyes and all related structures Conjunctivae: conjunctivae normal Sclerae: sclerae normal Pupils: Equal, round and reactive pupils present Neck: Neck: Yes normal visual inspection, Yes full ROM and Yes no lymphadenopathy Resp: Effort & Inspection: normal respiratory effort Auscultation: clear to auscultation bilaterally Cardio: Rate: regular rate Rhythm: regular rhythm Skin: General skin exam: no rashes or lesions noted Neuro: General: patient oriented x3 Cranial nerves: Yes Equal, round and reactive pupils present Extrem: General: Yes normal to inspection Course Course Course Narrative: 1309-- Physical exam consistent with bilateral otitis media. Will send A ugmentin to patient's pharmacy for treatment. Discussed worrisome signs and symptoms of when to return to the ED. all questions answered at this time. Patient has remained stable throughout ED visit. Patient is agreeable disposition and stable for discharge. Medical Decision Making Medical Decision Making [facility] Narrative: 52 year old male with pmhx significant for RAMANA, obesity, DDD, sacroilitis, plantar fasciits, spondylosis of lumbar spine presents to the ED today for evaluation of bilateral ear pain/ congestion x1 week. Vital signs stable. Afebrile. Pain on manipulation of bilateral pinnas, R>L. Bilateral EACs without erythema or edema. Bilateral TMs intact with effusion and erythema. No bulging. No mastoid tenderness. Posterior oropharynx WNL. Sinuses nontender. Lungs CTA bilaterally. Clinical concern for otitis externa, otitis media. Unlikely TM perforation, malignant otitis externa, mastoiditis. Plan for discharge. Differential Diagnosis Differential Diagnoses: The differential diagnosis associated with the pres entation includes as above. Admission/Observation Not indicated. External Record Review External record reviewed: Inpatient record, Office record, Outpatient record, Prior outpatient labs, Prior outpatient radiology, Primary care record and Outside ED record Prescription Management I considered prescription management with: Pain Medication and Antibiotic Social Determinants Patient?s care significantly limited by Social Determinants of Health including: Other Social Determinant of Health Critical Care Time Critical Care Time Critical Care Time: No Discharge Plan Discharge Clinical Impression: Bilateral acute otitis media, Hearing loss Patient Disposition: Home, Self-Care Instructions: Amoxicillin/Clavulanate Potassium (By mouth), Ear Infection (ED) Additional Instructions: Your physical exam today is consistent with a middle ear infection in both of your ears known as otitis media. Augmenting (amox-clauv) is an antibiotic that has been sent to your pharmacy. Take this as prescribed, twice daily for the next 10 days. Do not stop taking this antibiotic early or skip any doses as this may cause infection to persist or worsen. You may take tylenol and ibuprofen as needed for pain/ fevers. Please refrain from sticking anything in your ears, including Qtips as this can damage the ears/ear drums. If you begin to have drainage from the ears, worsening hearing loss or pain, please return to the emergency department. Follow-up with your primary care provider as needed. In the case of an emergency call 911. On amoxicillin-clavulanate, softer bowel movements are to be expected. Call your provider if you move your bowels more than 4 times a day, your bowel movements are almost all liquid, or you get a rash.? Prescriptions: New amoxicillin-pot clavulanate 875-125 mg tablet 1 tab PO BID 10 Days Qty: 20 0RF No Action methocarbamol 500 mg tablet 1,000 mg PO Q8H PRN (Reason: Back pain, muscle spasm) Qty: 30 0RF cyclobenzaprine 5 mg tablet 5 mg PO TID PRN (Reason: muscle spasm) 7 Days Qty: 21 0RF prednisone 20 mg tablet 20 mg PO DAILY 5 Days Qty: 5 0RF albuterol sulfate 90 mcg/actuation aerosol powdr breath activated 2 inh inhalation Q4-6H PRN (Reason: shortness of breath or wheezing) Qty: 1 0RF diclofenac potassium 25 mg capsule 25 mg PO BID chlorhexidine gluconate [Hibiclens] 4 % liquid 1 appl topical .COMPLEX Qty: 473 0RF Rx Instructions: 1 appl topical three times weekly in shower; lather on skin and wait 1 minute before rinsing off Referrals: [facility] [place] Primary Carine Cotton [Provider Group] Interventions: ED Discharge Assessment Last Done: 06/20/23 13:13 Discharge Date/Time: 06/20/23 13:13
== END 2023-06-20 13:13 | disposition home or self-care (01) ==
PROVIDERS: Emergency Provider Emergency Medicine
DX: H66.93 Otitis media, unspecified, bilateral (principal); H91.93 Unspecified hearing loss, bilateral; H92.03 Otalgia, bilateral; R09.81 Nasal congestion
CPT/HCPCS: 99283

== ENCOUNTER 2023-07-04 11:14 | Emergency (ER) | payer MEDICAID, SELFPAY ==
[2023-07-04 11:28] VITALS: BP 133/74; PULSE 72; RESP 18; TEMP 36.6; O2SAT 98; BMI 41.6
--- NOTE | 2023-07-04 11:34 | ED_ITS ---
HPI - General Adult General Chief complaint: Ear Problems Stated complaint: r ear pain Time Seen by Provider: 07/04/23 11:32 Source: patient Mode of arrival: ambulatory Limitations: no limitations History of Present Illness HPI narrative: 52 yold male with pmh of sleep apena, disc degeneration lumbar, morbid obestiy, and chronic pain syndrome presents to the ED for right ear pain. patient finished taking course of antibotics. Patient states whoosing sound in right ear. patient denies any dizziness, headache, fever, chills, nausea, vomiting, fever, chills, or recent trauma Related Data Home Medications Medication Instructions Recorded Confirmed diclofenac potassium 25 mg capsule 25 mg PO BID 01/20/21 01/20/21 Previous Rx's Medication Instructions Recorded chlorhexidine gluconate 4 % 1 appl topical .COMPLEX 2 doses 01/20/21 topical liquid (Hibiclens) #473 mL methocarbamol 500 mg tablet 1,000 mg (2 x 500 mg) PO Q8H PRN 01/28/21 Back pain, muscle spasm #30 tabs cyclobenzaprine 5 mg tablet 5 mg PO TID PRN muscle spasm 7 05/23/22 days #21 tabs albuterol sulfate 90 mcg/actuation 2 inh inhalation Q4-6H PRN 05/17/23 breath activated powder inhaler shortness of breath or wheezing #1 ea prednisone 20 mg tablet 20 mg PO DAILY 5 days #5 tabs 05/17/23 amoxicillin 875 mg-potassium 1 tab PO BID 10 days #20 tabs 06/20/23 clavulanate 125 mg tablet cefpodoxime 200 mg tablet 200 mg PO Q12H 10 days #20 tabs 07/04/23 naproxen 500 mg tablet 500 mg PO BID PRN pain 7 days #14 07/04/23 tabs Allergies Allergy/AdvReac Type Severity Reaction Status Date / Time No Known Allergies Allergy Verified 07/04/23 11:28 [No Known Allergies*] Review of Systems Review of Systems: Right ear pain Yes all other systems are reviewed and are negative PMFSH Past Medical History Medical History Depression Anxiety History of back pain Obesity Social History Social History Alcohol intake: current Alcohol intake frequency: holidays/special occasions only Substance Use Type: Marijuana Advance Directives: No Physical Exam ED Vital Signs: Vital Signs - 24 hr 07/04/23 11:28 Temperature 98 F Pulse Rate 72 Respiratory Rate 18 Blood Pressure 133/74 Pulse Oximetry 98 Oxygen Delivery Method Room Air BMI result Body Mass Index 41.6 Const General: cooperative, healthy appearing, comfortable, no acute distress, well developed, alert and awake Orientation/consciousness: oriented to person, oriented to place, oriented to time and patient oriented x3 HENAR Head: Yes normal to inspection, Yes No palpable skull fracture present, Yes normocephalic and Yes atraumatic Ears: hearing grossly normal bilaterally, external ears normal, TM normal on the left, EAC's normal, mastoids normal, no periauricular adenopathy and TM abnormal erythematous on the right Eyes General: appearance normal, both eyes and all related structures Visual Gay: normal visual gay by confrontation Alignment and Position: alignment normal Periorbital: periorbital findings normal Eyelids: Yes eyelids normal Conjunctivae: conjunctivae normal Sclerae: sclerae normal Corneas: corneas normal Pupils: Equal, round and reactive pupils present EOM: EOMs intact bilaterally Direct Ophthalmoscopy: normal light reflex Neck Neck: Yes normal visual inspection, Yes full ROM, Yes no lymphadenopathy, Yes no meningeal signs, Yes trachea midline, Yes supple, No anterior neck swelling and No tender Chest Chest palpation & inspection: normal inspection of the chest and normal palpation of entire chest wall Resp Effort & Inspection: normal respiratory effort and able to speak in complete sentences Auscultation: clear to auscultation bilaterally Cardio Jugular venous distension: no JVD Heart sounds: S1 normal heart sound present and S2 normal heart sound present GI Inspection: Yes normal to inspection Palpation (GI): Soft to palpation, not firm, nontender, no guarding and not rigid General: No CVA tenderness and Yes no CVA tenderness Back/Spine/Pelvis Back: no CVA tenderness, No CVA tenderness and No back tenderness Skin General skin exam: no rashes or lesions noted, elasticity normal and turgor normal Neuro General: oriented to person, oriented to place, oriented to time, patient oriented x3, gait normal, tone normal, moves all extremities, Normal light touch and pain sensation, no meningeal signs, no focal motor deficits and CN's II-XI intact bilaterally Cranial nerves: Yes Equal, round and reactive pupils present Extrem General: Yes normal to inspection, Yes full ROM and Yes capillary refill normal Psych Appearance: grossly normal, well kempt and not disheveled Course Course Course Narrative: RME: 52 yold male presents continous right ear pain after being diagnosed with antibioitcs. patient states whooshing sound in the ED. Patient stable. patient informed to follow up with EnT. As per uptdate will discharge with cefpodoxime Medical Decision Making Medical Decision Making [facility] Narrative: 52 yold male with right ear pain after finsihing antibotics for ear infection and aslo having whooshing sound in right ear. Patient denies any drainage, ringing in ears, redness, ear discharge, fever, chills, or any trauma. Patient started on cepdoxime antiboitics and informed to follow up with ENT. Patient explained worrisome signs and told to return if he has them Differential Diagnosis Differential Diagnoses: The differential diagnosis associated with the presentation includes (otitis media, externa, mastoiditis, cerumen impaction, middle ear effusions) Admission/Observation Consideration of admission/observation: Escalation of care including ad mission/observation considered External Record Review External record reviewed: Other (Prior Visits) Prescription Management I considered prescription management with: Pain Medication and Antibiotic Discharge Plan Discharge Clinical Impression: Otitis media Patient Disposition: Home, Self-Care Instructions: Ear Infection (ED) Additional Instructions: Recommend follow up with ENT. You will be discharged with another course of antibiotics. Recommend follow-up with ENT to evaluate for possible middle ear effusion. Return to the ED for worsening ear pain, ear discharge, ringing in the ear, blood green discharge from the ears, redness swelling in front or behind the ears, neck pain, jaw pain, or any other concerning symptoms. Prescriptions: New cefpodoxime 200 mg tablet 200 mg PO Q12H 10 Days Qty: 20 0RF Rx Instructions: must administer with a meal/food naproxen 500 mg tablet 500 mg PO BID PRN (Reason: pain) 7 Days Qty: 14 0RF No Action methocarbamol 500 mg tablet 1,000 mg PO Q8H PRN (Reason: Back pain, muscle spasm) Qty: 30 0RF cyclobenzaprine 5 mg tablet 5 mg PO TID PRN (Reason: muscle spasm) 7 Days Qty: 21 0RF prednisone 20 mg tablet 20 mg PO DAILY 5 Days Qty: 5 0RF albuterol sulfate 90 mcg/actuation aerosol powdr breath activated 2 inh inhalation Q4-6H PRN (Reason: shortness of breath or wheezing) Qty: 1 0RF amoxicillin-pot clavulanate 875-125 mg tablet 1 tab PO BID 10 Days Qty: 20 0RF diclofenac potassium 25 mg capsule 25 mg PO BID chlorhexidine gluconate [Hibiclens] 4 % liquid 1 appl topical .COMPLEX Qty: 473 0RF Rx Instructions: 1 appl topical three times weekly in shower; lather on skin and wait 1 minute before rinsing off Referrals: Froylan Hendrix [Physician] - (recurrent otitis media. possible middle ear effussion) Interventions: ED Discharge Assessment Last Done: 07/04/23 11:46 Discharge Date/Time: 07/04/23 11:46 Print Language: Armenian
== END 2023-07-04 11:46 | disposition home or self-care (01) ==
PROVIDERS: Emergency Provider Emergency Medicine
DX: H66.91 Otitis media, unspecified, right ear (principal); H92.01 Otalgia, right ear; Z79.899 Other long term (current) drug therapy
CPT/HCPCS: 99282; 99283